=== PATIENT | female | born 1960 ===

== ENCOUNTER → 2017-12-31 | Emergency (ER) | payer OTHER ==
[~2017-12-31] VITALS: Ht 170.2 cm; Wt 86.2 kg
== END | disposition home or self-care (01) ==
LOC: ER 09:37
DX: K52.89 Other specified noninfective gastroenteritis and colitis (principal)

== ENCOUNTER 2021-06-14 09:40 | Outpatient (CLI) | payer OTHER | END 2021-06-14 10:00 | disposition home or self-care (01) | LOC: PPH VACUNA 09:40 | PROVIDERS: ATTEND Emergency Medicine Pediatric Emergency Medicine | DX: Z23 Encounter for immunization (principal) ==